=== PATIENT | female | born 1980 | race Caucasian/White ===

== ENCOUNTER → 2022-11-24 | Emergency (ER) | payer OTHER ==
[~2022-11-24] VITALS: Ht 167.6 cm; Wt 59.0 kg
[~2022-11-24] MED LIST: LORAZEPAM 0.5 MG TABLET ONE; LORAZEPAM 1 MG TABLET PO ONE
[2022-11-24 19:00] VITALS: BP 115/89; TEMP 98.2; O2SAT 100
== END | disposition home or self-care (01) ==
LOC: ER 17:14
DX: F41.9 Anxiety disorder, unspecified (principal); F43.9 Reaction to severe stress, unspecified; Z88.2 Allergy status to sulfonamides

== ENCOUNTER 2024-08-29 10:48 | Emergency (ER) | payer OTHER ==
[~2024-08-29] VITALS: Ht 167.6 cm; Wt 59.0 kg
[2024-08-29] MEDS ORDERED: LORA-259 PO (12:00)
[2024-08-29] MEDS ORDERED: PROP20TA7 PO (12:00)
[2024-08-29] MEDS ORDERED: PROPRANOLOL HCL 10 MG TABLET ONE (12:12)
[2024-08-29] MEDS: PROPRANOLOL HCL 10 MG TABLET PO SCH (12:16)
[2024-08-29 12:24] VITALS: BP 125/80; TEMP 98.6; O2SAT 99
== END 2024-08-29 12:10 | disposition home or self-care (01) ==
LOC: ER 10:48
DX: F41.9 Anxiety disorder, unspecified (principal); F41.0 Panic disorder [episodic paroxysmal anxiety]; Z88.2 Allergy status to sulfonamides; Z60.2 Problems related to living alone